=== PATIENT | male | born 2000 ===

== ENCOUNTER 2021-04-23 09:52 | Inpatient (IN) ==
[2021-04-23] MEDS ORDERED: hydrALAZINE 20 MG/1 ML VIAL IV PRN (12:38)
[2021-04-23] MEDS ORDERED: ONDANSETRON 4 MG/2 ML VIAL IV PRN (12:38)
[2021-04-23] MEDS ORDERED: ALBUTEROL/IPRATROPIUM 3 ML NEB RESP TX PRN (12:38)
[2021-04-23] MEDS ORDERED: fentaNYL INJ 1,250 MCG in SODIUM CHLORIDE 0.9% 225 ML IV PRN (12:38)
[2021-04-23] MEDS ORDERED: HydrOXYzine PAMOATE 50 MG CAPSULE PO PRN (12:40)
[2021-04-23] MEDS ORDERED: rOPINIRole 0.25 MG TABLET PO PRN (12:40)
[2021-04-23] MEDS ORDERED: diphenhydrAMINE 50 MG/1 ML VIAL IV PRN (12:40)
[2021-04-23] MEDS ORDERED: DICYCLOMINE 10 MG CAPSULE PO PRN (12:40)
[2021-04-23] MEDS ORDERED: cloNIDine 0.1 MG TABLET PO PRN (12:40)
[2021-04-23] MEDS: LACTATED RINGERS 1,000 ML IV SCH (13:15)
[2021-04-23 13:36] LABS: Albumin 4.1 G/DL (3.4-5.0); Bilirubin,Total 0.8 MG/DL (0.2-1.0); Osmolality,Calculated 286.8 MOS/KG (273-304); Potassium 3.7 MMOL/L (3.5-5.1)
[2021-04-23] MEDS: PANTOPRAZOLE 40 MG VIAL IV SCH (13:40)
[2021-04-23] MEDS: ENOXAPARIN 40 MG/0.4 ML SYRINGE SUBCUT SCH (14:27)
[2021-04-23] MEDS ORDERED: THIAMINE INJ 100 MG, FOLIC ACID INJ 1 MG, MULTIVITAMIN INJ 10 ML in SODIUM CHLORIDE 0.9... IV ONE (14:30)
[2021-04-23] MEDS ORDERED: HydrOXYzine PAMOATE 25 MG CAPSULE PO PRN (15:00)
[2021-04-23 17:08] LABS: Barbiturates Screen,Urine Negative (Negative); Benzodiazepines Screen,Urine Positive (Negative); Cannabinoid Screen,Urine Positive (Negative); Opiate Screen,Urine Positive (Negative); Phencyclidine Screen,Urine Negative (Negative)
[2021-04-24] MEDS: LACTATED RINGERS 1,000 ML IV SCH ×3 (00:07→21:45)
[2021-04-24 04:28] LABS: ABG Base Excess 2.9 MMOL/L (-2.5-2.5); ABG PCO2 34.4 MM HG (35-48); ABG PH 7.485 (7.35-7.45); ABG TCO2 22.4 MMOL/L (23-27); Allen Test Positive; Pt O2 Delivery Device Ventilator
[2021-04-24 04:38] LABS: Basophils % 0.2 % (0.0-0.8); Eosinophils # 0.1 10*3/uL (0.0-0.87); Eosinophils % 0.4 % (0.00-10.9); Hematocrit 38.8 VOL% (42.0-52.0); Immature Granulocytes % 0.5 %; Immature Granulocytes Absolute 0.08 #; Lymphocytes # 1.9 10*3/uL (1.4-4.0); Lymphocytes % 11.2 % (21.2-54.2); Mean Corpuscular HGB Conc 33.5 GM/DL (32-36); Mean Corpuscular Volume 85.7 FL (87-102); Mean Platelet Volume 9.5 FL (9.6-12.0); Monocytes % 10.9 % (1.7-12.7); Neutrophils % 76.8 % (38.7-73.9); Platelet Count 423 T/CUMM (130-400); Red Blood Count 4.53 MC/CUMM (3.8-5.5); Red Cell Distribution Width 12.9 % (9.3-17.3); White Blood Count 16.8 T/CUMM (4-12)
[2021-04-24 05:05] LABS: Albumin 3.8 G/DL (3.4-5.0); Bilirubin,Total 1.1 MG/DL (0.2-1.0); Calcium 9.1 MG/DL (8.5-10.1); Osmolality,Calculated 292.4 MOS/KG (273-304); Potassium 3.4 MMOL/L (3.5-5.1); Total Protein 7.4 G/DL (6.4-8.2)
[2021-04-24] MEDS: POTASSIUM CHLORIDE 20 MEQ/15 ML UDCUP PER TUBE PRN ×2 (07:53→09:51)
[2021-04-24] MEDS: LORazepam 2 MG/1 ML VIAL IV PRN ×2 (10:47→20:07)
[2021-04-24] MEDS ORDERED: DEXMEDETOMIDINE 200 MCG in SODIUM CHLORIDE 0.9% 48 ML IV PRN (10:59)
[2021-04-24] MEDS: PANTOPRAZOLE 40 MG VIAL IV SCH (13:33)
[2021-04-24] MEDS: ENOXAPARIN 40 MG/0.4 ML SYRINGE SUBCUT SCH (13:37)
[2021-04-24] MEDS ORDERED: ACETAMINOPHEN 325 MG TABLET PO PRN (13:38)
[2021-04-24] MEDS ORDERED: POTASSIUM CHLORIDE 20 MEQ TABLET PO PRN (13:39)
[2021-04-25] MEDS: LACTATED RINGERS 1,000 ML IV SCH ×2 (03:45→07:54)
[2021-04-25 04:32] VITALS: BP 119/80
[2021-04-25 04:34] LABS: Basophils # 0.1 10*3/uL (0.0-0.2); Basophils % 0.5 % (0.0-0.8); Eosinophils # 0.4 10*3/uL (0.0-0.87); Eosinophils % 3.4 % (0.00-10.9); Hematocrit 32.7 VOL% (42.0-52.0); Hemoglobin 11.2 GM/DL (14.0-18.0); Immature Granulocytes % 0.2 %; Immature Granulocytes Absolute 0.02 #; Lymphocytes # 1.9 10*3/uL (1.4-4.0); Lymphocytes % 18.3 % (21.2-54.2); Mean Corpuscular HGB Conc 34.3 GM/DL (32-36); Mean Corpuscular Volume 84.3 FL (87-102); Mean Platelet Volume 8.9 FL (9.6-12.0); Neutrophils % 66.6 % (38.7-73.9); Platelet Count 303 T/CUMM (130-400); Red Blood Count 3.88 MC/CUMM (3.8-5.5); Red Cell Distribution Width 12.3 % (9.3-17.3); White Blood Count 10.2 T/CUMM (4-12)
[2021-04-25 05:13] LABS: Albumin 3.2 G/DL (3.4-5.0); Bilirubin,Total 0.8 MG/DL (0.2-1.0); Calcium 8.4 MG/DL (8.5-10.1); Osmolality,Calculated 284.1 MOS/KG (273-304); Total Protein 6.7 G/DL (6.4-8.2)
== END 2021-04-25 11:05 | disposition home or self-care (01) | DRG 896 ==
LOC: SUATTDRO 12:25 → N.CC 12:25
PROVIDERS: ADMIT Family Medicine; ATTEND Family Medicine